=== PATIENT | female | born 1955 | race Caucasian/White ===

== ENCOUNTER 2022-09-01 06:33 | Day surgery (SDC) | payer MEDICARE, SELFPAY ==
[2022-09-01 06:52] VITALS: BP 146/75; PULSE 73; RESP 16; TEMP 37.3; O2SAT 97; BMI 26.3
--- NOTE | 2022-09-01 07:15 | P.CONAN_ITS ---
Documented by User: Lydia Roberts NP 08/31/22 10:43 HPI - Anesthesia Eval Consult details Narrative: 66yo F for Upper Endoscopy and Colonoscopy PMFSH Past Medical History Medical History Allergic rhinitis Asthma Diverticulosis Osteoporosis Surgical History Surgical History H/O colonoscopy (~2018) H/O dilation and curettage H/O foot surgery H/O melanoma excision History of nasal surgery Social History Social History Patient Tobacco Use Status: Never used Tobacco Use of substances other than those prescribed or required for medical reasons: No Are you DNR?: No Advance Directives: No Advance Directives Information Provided: Yes Meds Allergies Allergy/AdvReac Type Severity Reaction Status Date / Time acetaminophen [From Percocet] Allergy Severe Vomiting, Verified 09/01/22 06:46 Palpitations, Shakiness codeine Allergy Severe Vomiting, Verified 09/01/22 06:46 Palpitations, Shakiness hydrocodone [From Vicodin] Allergy Severe Vomiting, Verified 09/01/22 06:46 Palpitations, Shakiness NSAIDS (Non-Steroidal Allergy Severe Vomiting, Verified 09/01/22 06:46 Anti-Inflamma Palpitations, Shakiness oxycodone [From Percocet] Allergy Severe Vomiting, Verified 09/01/22 06:46 Palpitations, Shakiness kiwi AdvReac Intermediate Mouth Verified 09/01/22 06:46 itching scallops AdvReac Intermediate Metallic Verified 09/01/22 06:46 taste in mouth Home Medications Medication Instructions Recorded Confirmed Last Taken Type Elderberry 1 tab PO DAILY 08/31/22 09/01/22 Unknown History alendronate 70 mg tablet 70 mg PO DIRECTED 08/31/22 09/01/22 Unknown History calcium 1 tab PO DAILY 08/31/22 09/01/22 Unknown History cholecalciferol (vitamin D3) 25 25 mcg PO DAILY 08/31/22 09/01/22 Unknown History mcg (1,000 unit) capsule (Vitamin D3) zinc 10 mg tablet 10 mg PO DAILY 08/31/22 09/01/22 Unknown History albuterol 2 puff inhalation NEEDED PRN 0609/01/22 09/01/22 History breathing Exam Exam Date and Time: August 31, 2022 1036 Assessment and Plan Assessment Anesthesia Assessment: Chart Reviewed Documented by User: Kimberly Cloud DO 09/01/22 07:17 [facility] Past Medical History Medical History Allergic rhinitis Asthma Diverticulosis Osteoporosis Family History Family history of problems with anesthesia: No Surgical History Surgical History H/O colonoscopy (~2018) H/O dilation and curettage H/O foot surgery H/O melanoma excision History of nasal surgery History of Problems with Anesthesia: No Social History Social History Patient Tobacco Use Status: Never used Tobacco Use of substances other than those prescribed or required for medical reasons: No Are you DNR?: No Advance Directives: No Advance Directives Information Provided: Yes Meds Allergies Allergy/AdvReac Type Severity Reaction Status Date / Time acetaminophen [From Percocet] Allergy Severe Vomiting, Verified 09/01/22 06:46 Palpitations, Shakiness codeine Allergy Severe Vomiting, Verified 09/01/22 06:46 Palpitations, Shakiness hydrocodone [From Vicodin] Allergy Severe Vomiting, Verified 09/01/22 06:46 Palpitations, Shakiness NSAIDS (Non-Steroidal Allergy Severe Vomiting, Verified 09/01/22 06:46 Anti-Inflamma Palpitations, Shakiness oxycodone [From Percocet] Allergy Severe Vomiting, Verified 09/01/22 06:46 Palpitations, Shakiness kiwi AdvReac Intermediate Mouth Verified 09/01/22 06:46 itching scallops AdvReac Intermediate Metallic Verified 09/01/22 06:46 taste in mouth Home Medications Medication Instructions Recorded Confirmed Last Taken Type Elderberry 1 tab PO DAILY 08/31/22 09/01/22 Unknown History alendronate 70 mg tablet 70 mg PO DIRECTED 08/31/22 09/01/22 Unknown History calcium 1 tab PO DAILY 08/31/22 09/01/22 Unknown History cholecalciferol (vitamin D3) 25 25 mcg PO DAILY 08/31/22 09/01/22 Unknown History mcg (1,000 unit) capsule (Vitamin D3) zinc 10 mg tablet 10 mg PO DAILY 08/31/22 09/01/22 Unknown History albuterol 2 puff inhalation NEEDED PRN 09/01/22 09/01/22 09/01/22 History breathing Exam Exam Date and Time: September 01, 2022 0715 Height,Weight and Vital Signs: Height 5 ft 5 in Weight 71.668 kg Vital Signs Temperature 99.2 F 09/01/22 06:52 Pulse Rate 73 09/01/22 06:52 Respiratory Rate 16 09/01/22 06:52 Blood Pressure 146/75 H 09/01/22 06:52 Pulse Oximetry 97 09/01/22 06:52 Oxygen Delivery Method Room Air 09/01/22 06:52 Temperature 99.2 F 09/01/22 06:52 Pulse Rate 73 09/01/22 06:52 Respiratory Rate 16 09/01/22 06:52 Blood Pressure 146/75 H 09/01/22 06:52 Pulse Oximetry 97 09/01/22 06:52 Oxygen Delivery Method Room Air 09/01/22 06:52 Airway Mallampati Class: II TM Dist: >3cm Neck ROM: Full Loose/Missing/Broken Teeth: No Heart: S1S2 Lungs: CTAB Assessment and Plan Assessment Anesthesia Assessment: Anesthesia Plan Discussed and Chart Reviewed Final Anesthetic Review Family History of Problems with Anesthesia: No History of Problems with Anesthesia: No NPO: Yes ASA Class: II Final Preanesthetic Review: No Changes in Pt Med Stat, Meds/Allgs Chart Reviewed, Consent Obtained/Reviewed and Anes Risks/Benef Reviewed Patient Risk: Low Procedure Risk: Low Anesthetic Plan Anesthetic Plan: MAC: and Agree w/ Assess. and Plan Disposition: Standard PACU
[2022-09-01] MEDS: Lactated Ringers 1,000 ML 100 ML IVCONT (07:21)
--- NOTE | 2022-09-01 07:24 | MHC.SHP ---
Pre-Procedural Eval Section A Date of Service: 09/01/22 Section B Chief Complaint: screening,reflux Details of Present Illness: see H&P no changes Relevant Family History (Specify if Yes): No Relevant Social History: None Present Medications: see Short Stay Collaborative assessment Medical History: No relevant PMH History of Previous Operations: No relevant previous surgery Allergies: Allergies Allergy/AdvReac Type Severity Reaction Status Date / Time acetaminophen [From Percocet] Allergy Severe Vomiting, Verified 09/01/22 06:46 Palpitations, Shakiness codeine Allergy Severe Vomiting, Verified 09/01/22 06:46 Palpitations, Shakiness hydrocodone [From Vicodin] Allergy Severe Vomiting, Verified 09/01/22 06:46 Palpitations, Shakiness NSAIDS (Non-Steroidal Allergy Severe Vomiting, Verified 09/01/22 06:46 Anti-Inflamma Palpitations, Shakiness oxycodone [From Percocet] Allergy Severe Vomiting, Verified 09/01/22 06:46 Palpitations, Shakiness kiwi AdvReac Intermediate Mouth Verified 09/01/22 06:46 itching scallops AdvReac Intermediate Metallic Verified 09/01/22 06:46 taste in mouth Review of Systems Sugical H&P ROS: Negative: Constitution, Cardiovascular, Respiratory, Neurological, Psychiatric, Hem-Onc, Allergic/Immunologic, Gastrointestinal, Genitourinary, Musculoskeletal, Integumentary, Endocrine and Eyes/Ears/Nose/Throat Exam Surgical H&P Exam: Normal: HEENT, Normal: Heart, Normal: Lungs, Normal: Extremities, Normal: Abdomen, Normal: Skin and Normal: Neurological Plan Diagnosis/Plan: Unchanged I have reviewed the history and physical and performed a pertinent physical examination on my patient. No changes have occurred unless specified. Time Spent With Patient Time: Total time managing care of this patient today ____ minutes.
[2022-09-01 08:00] VITALS: BP 91/51; PULSE 56; RESP 16; TEMP 36.1; O2SAT 95
--- NOTE | 2022-09-01 08:08 | P.BOP_ITS ---
Brief Operative Note Date of Service: 09/01/22 Pre-op diagnosis: gerd screening Post-op diagnosis: same Procedure: egd colon Surgeon: Davis Garcia Anesthesia: MAC Was an Windows Application Administrator used for this Procedure?: No Estimated blood loss (mL): 2 Pathology: other Condition: stable Disposition: PACU
[2022-09-01 08:15] VITALS: BP 124/58; PULSE 56; RESP 16; TEMP 36.3; O2SAT 100
--- NOTE | 2022-09-01 08:50 | OP_ITS ---
DATE OF SERVICE: 09/01/2022 SURGEON: Davis Garcia MD INDICATIONS: Gastroesophageal reflux disease and colon cancer screening. PREOPERATIVE DIAGNOSIS: POSTOPERATIVE DIAGNOSIS: PROCEDURE PERFORMED: Upper endoscopy with biopsy, colonoscopy to the terminal ileum. ESTIMATED BLOOD LOSS: COMPLICATIONS: ANESTHESIA: Monitored anesthesia care. ASSISTANTS: SPECIMENS: DESCRIPTION OF PROCEDURE: History and physical performed. The risks and benefits of the procedure were explained to the patient. Informed consent was obtained. The patient was placed in left lateral decubitus position. The Olympus video gastroscope was introduced into the esophagus, stomach, and duodenum. Examination was performed. The scope was removed. She tolerated the procedure well and was repositioned for colonoscopy. Digital rectal exam was performed and was found to be normal. The Olympus pediatric video colonoscope was introduced into the rectum and advanced to the cecum without difficulty. The cecum was identified by transillumination, palpation, and identification of ileocecal valve. Examination was performed and the scope was removed. She tolerated both procedures well, returned to recovery area in stable condition. FINDINGS: Upper endoscopy: 1. Esophagus: The esophagus was normal. The EG junction was slightly irregular. This was biopsied. There was no esophagitis. 2. Stomach: Stomach showed a 4 cm hiatal hernia with a paraesophageal component. There was no gastritis or ulceration. Biopsies were obtained from the antrum to evaluate for H pylori. 3. Duodenum: The bulb and 2nd portion were normal. Colonoscopy: The terminal ileum was examined and appeared normal. The visualized colonic mucosa was normal. The quality of prep was good. No polyps were identified. There was mild sigmoid diverticulosis. Retroflexed examination was normal. IMPRESSION: 1. Gastroesophageal reflux disease. 2. Hiatal hernia. 3. Normal colonoscopy. RECOMMENDATION: 1. Follow up biopsy results. 2. Repeat colonoscopy is recommended in 5 years because of family history. MD YANCY Remy/DEVAN / [id number]
== END 2022-09-01 08:34 | disposition home or self-care (01) ==
PROVIDERS: PCP Internal Medicine Geriatric Medicine; Visit Provider Internal Medicine Gastroenterology
PROC: (CPT 43239; principal; 2022-09-01 07:30)
DX: Z12.11 Encounter for screening for malignant neoplasm of colon (principal); Z86.010 Personal history of colon polyps; Z80.0 Family history of malignant neoplasm of digestive organs; K21.9 Gastro-esophageal reflux disease without esophagitis; K44.9 Diaphragmatic hernia without obstruction or gangrene; K57.30 Diverticulosis of large intestine without perforation or abscess without bleeding; J30.9 Allergic rhinitis, unspecified; M81.0 Age-related osteoporosis without current pathological fracture; Z85.820 Personal history of malignant melanoma of skin; Z79.899 Other long term (current) drug therapy; Z88.8 Allergy status to other drugs, medicaments and biological substances
CPT/HCPCS: 43239; G0105; 88305; 88342